=== PATIENT | male | born 1985 | race Caucasian/White ===

== ENCOUNTER → 2016-09-12 | Outpatient (REF) | payer OTHER | LOC: M LAB REF 18:59 | PROVIDERS: ATTEND Physician Assistant | DX: J02.9 Acute pharyngitis, unspecified (principal) ==

== ENCOUNTER → 2016-11-05 | Outpatient (REF) | payer OTHER | LOC: M LAB REF 10:45 | PROVIDERS: ATTEND Physician Assistant | DX: J02.9 Acute pharyngitis, unspecified (principal) ==

== ENCOUNTER → 2018-06-14 | Outpatient (REF) | payer OTHER ==
[2018-06-14 15:25] LABS: BASO % 0.3 % (0.0-1.0); EOS # 0.2 10^3/uL (0.0-0.50); EOS % 2.4 % (0.0-3.0); HEMATOCRIT 44.6 % (42.0-52.0); HEMOGLOBIN 14.5 g/dl (13.5-17.5); LYMPH # 1.8 10^3/uL (1.5-4.5); LYMPH % 29.4 % (24.0-44.0); MEAN CORPUSCULAR HGB CONC 32.5 g/dl (32.0-36.5); MEAN CORPUSCULAR VOLUME 89.2 fl (80.0-96.0); MONO # 0.7 10^3/uL (0.0-0.8); NEUTROPHILS # 3.5 10^3/uL (1.8-7.7); NEUTROPHILS % 55.9 % (36.0-66.0); PLATELET COUNT, AUTOMATED 165 10^3/uL (150-450); RED CELL DISTRIBUTION WIDTH 12.6 % (11.5-14.5); WHITE BLOOD COUNT 6.2 10^3/uL (4.0-10.0)
[2018-06-14 16:32] LABS: ALBUMIN 4.1 GM/DL (3.2-5.2); ALBUMIN/GLOBULIN RATIO 1.46 (1.00-1.93); ALKALINE PHOSPHATASE 68 U/L (45-117); ALT/SGPT 89 U/L (12-78); ANION GAP 6 MEQ/L (8-16); AST/SGOT 35 U/L (7-37); BILIRUBIN,TOTAL 0.4 MG/DL (0.2-1.0); BLOOD UREA NITROGEN 14 MG/DL (7-18); CALCIUM LEVEL 8.8 MG/DL (8.5-10.1); CARBON DIOXIDE LEVEL 30 MEQ/L (21-32); CHLORIDE LEVEL 106 MEQ/L (98-107); CHOLESTEROL LEVEL 170 MG/DL (<200); CHOLESTEROL RISK RATIO 6.538 (<5); FREE T3 3.2 PG/ML (2.2-4.0); FREE T4 1.05 NG/DL (0.76-1.46); GLOMERULAR FILTRATION RATE > 60.0 (>60); GLUCOSE, FASTING 104 MG/DL (70-100); HDL CHOLESTEROL 26 MG/DL (>40); LDL CHOLESTEROL 92 MG/DL (<100); NON-HDL-C 144 MG/DL; POTASSIUM SERUM 4.7 MEQ/L (3.5-5.1); SODIUM LEVEL 142 MEQ/L (136-145); TOTAL PROTEIN 6.9 GM/DL (6.4-8.2); TRIGLYCERIDES LEVEL 259 MG/DL (<150)
== END ==
LOC: M LABDRWAD 14:10
DX: E66.09 Other obesity due to excess calories (principal); Z13.220 Encounter for screening for lipoid disorders

== ENCOUNTER → 2018-09-10 | Outpatient (REF) | payer OTHER ==
[2018-09-10 13:16] LABS: BLOOD UREA NITROGEN 18 MG/DL (7-18); CALCIUM LEVEL 8.6 MG/DL (8.5-10.1); CARBON DIOXIDE LEVEL 26 MEQ/L (21-32); CHLORIDE LEVEL 103 MEQ/L (98-107); CREATININE FOR GFR 0.96 MG/DL (0.70-1.30); GLOMERULAR FILTRATION RATE > 60.0 (>60); GLUCOSE, FASTING 93 MG/DL (70-100); POTASSIUM SERUM 5.3 MEQ/L (3.5-5.1); SODIUM LEVEL 137 MEQ/L (136-145)
[2018-09-10 14:33] LABS: HEMOGLOBIN A1c 5.7 %
== END ==
LOC: M LABDRWAD 12:05
PROVIDERS: ATTEND Nurse Practitioner Family
DX: R73.01 Impaired fasting glucose (principal); I10 Essential (primary) hypertension

== ENCOUNTER → 2019-07-10 | Outpatient (REF) | payer OTHER | LOC: M SFHCPLAZ 17:25 | PROVIDERS: ATTEND Dermatology | DX: L81.9 Disorder of pigmentation, unspecified (principal) ==

== ENCOUNTER → 2020-08-03 | Outpatient (CLI) | payer OTHER ==
--- NOTE | 2020-08-05 19:09 | SLEEP ---
[facility] NOCTURNAL POLYSOMNOGRAPHY DATE: 08/03/2020 ORDERED BY: Bora Winslow Nocturnal polysomnography was performed for evaluation of sleep physiology in this patient with a history of snoring and irregular breathing in sleep, who has a comorbidity of hypertension. There was 7 hours and 39 minutes of data reviewed. There was 295 minutes of sleep identified. Sleep latency was quite prolonged at 147 minutes. REM sleep latency from sleep onset was normal at 95 minutes. Sleep architecture was good with two REM cycles noted. Overall sleep efficiency was 64.8%. The electrocardiogram showed a sinus rhythm with an average heart rate of 60 beats per minute. Rate ranged 50-80 beats per minute. EEG showed essentially normal waveforms for wake and sleep. No focal events were identified. There were only 13 respiratory events identified of 10 seconds in duration or greater for an apnea-hypopnea index of 2.6. The events were obstructive, not positional. Snoring was noted over the entire study, and arousals from respiratory events when arousals from snoring were included occurred 1.6 times per hour. There were no oxygen desaturations below 90%. There was minimal limb activity, and remaining measures of sleep physiology were normal. IMPRESSION: Normal nocturnal polysomnography with mild respiratory patterning and snoring
== END ==
LOC: M SLEEP 20:00
PROVIDERS: ATTEND Physician Assistant
DX: R06.83 Snoring (principal)

== ENCOUNTER → 2022-07-13 | Outpatient (REF) | payer OTHER | LOC: M SFHCDERM 14:21 | PROVIDERS: ATTEND Physician Assistant | DX: C44.219 Basal cell carcinoma of skin of left ear and external auricular canal (principal) ==

== ENCOUNTER → 2023-09-15 | Outpatient (CLI) | payer OTHER ==
[~2023-09-15] MED LIST: AMLO1TAB24; IBUP-1022 PO; LISI20TA33; METH-1164 PO
== END ==
LOC: M WUC 09:45
PROVIDERS: ATTEND Internal Medicine
DX: M54.6 Pain in thoracic spine (principal); R07.89 Other chest pain

== ENCOUNTER → 2025-04-14 | Outpatient (CLI) | payer OTHER | LOC: M RAD 08:54 | PROVIDERS: ATTEND Internal Medicine | DX: N50.812 Left testicular pain (principal) ==